=== PATIENT | female | born 1970 | race Hispanic/Latino ===

== ENCOUNTER 2018-02-07 07:08 | Day surgery (SDC) | payer BC ==
[2018-02-04 15:39] VITALS: BP 124/73
[2018-02-04 15:43] LABS: BASOPHILS % (AUTO) 0.4 % (0.0-5.0); EOSINOPHILS % (AUTO) 1.7 % (0.0-8.0); HEMATOCRIT 38.6 % (36-48); LYMPHOCYTES % (AUTO) 22.7 % (21.0-51.0); MEAN CORPUSCULAR HEMOGLOBIN 30.8 pg (27.0-33.0); MEAN CORPUSCULAR HGB CONC 33.6 g/dL (32.0-36.0); MEAN CORPUSCULAR VOLUME 91.8 fL (79-99); MONOCYTES % (AUTO) 10.5 % (3.0-13.0); NEUTROPHILS % (AUTO) 64.7 % (40.0-77.0); PLATELET COUNT (AUTO) 310 K/uL (130-400); RED BLOOD CELL COUNT(AUTO) 4.21 MIL/uL (4.00-5.50); RED CELL DISTRIBUTION WIDTH 12.8 % (11.0-15.5)
[2018-02-04 15:59] LABS: CREATININE 0.9 mg/dL (0.5-1.5); POTASSIUM 4.7 mmol/L (3.5-5.1)
[2018-02-07] VITALS (20 sets, daily range): BP systolic 125–151; BP diastolic 69–94
[~2018-02-07] VITALS: Ht 157.5 cm; Wt 65.4 kg
[~2018-02-07 07:08] MED LIST: ASPI-1197 PO; IBUP-2077 PO; SERT50TA12 PO
[2018-02-07] MEDS ORDERED: CEFAZOLIN SODIUM 1 GM VIAL ONE (08:42)
[2018-02-07] MEDS ORDERED: LACTATED RINGERS 1000ML 1,000 ML IV ONE (08:44)
[2018-02-07] MEDS: CEFAZOLIN SODIUM 1 GM VIAL IVP SCH ×2 (08:52→09:20)
[2018-02-07] MEDS ORDERED: MIDAZOLAM HCL 1 MG/ML 2ML VIAL ONE (08:55)
[2018-02-07] MEDS ORDERED: PROPOFOL 10 MG/ML 20ML VIAL IV ONE ×2 (08:55→10:31)
[2018-02-07] MEDS ORDERED: LIDOCAINE PF 2% 5ML ABBOJECT ONE (08:55)
[2018-02-07] MEDS ORDERED: ROCURONIUM 10MG/1ML SYR 10 MG/ML ML ONE (08:56)
[2018-02-07] MEDS ORDERED: FENTANYL CITRATE PF 50 MCG/1 ML 2ML VIAL ONE ×3 (08:56→10:58)
[2018-02-07] MEDS ORDERED: BUPIVACAINE/EPI/PF 0.25% 30ML VIAL IJ ONE (09:01)
[2018-02-07] MEDS ORDERED: ROPIVACAINE 0.5% 5MG/ML 30ML IJ ONE (09:12)
[2018-02-07] MEDS ORDERED: LIDOCAINE HCL-MPF 1% 2ML VIAL ONE (09:23)
[2018-02-07] MEDS ORDERED: EPHEDRINE SULFATE 50 MG/ML AMPULE ONE (10:09)
[2018-02-07] MEDS ORDERED: CEPH500B PO (11:28)
[2018-02-07] MEDS ORDERED: TYL3 PO (11:28)
[2018-02-07] MEDS ORDERED: OCTYL 2-CYANOACRYLATE 1 EACH TP ONE (11:31)
[2018-02-07] MEDS ORDERED: MEPERIDINE-PF 25 MG/ML SYG ONE ×2 (12:02→12:18)
[2018-02-07] MEDS ORDERED: KETOROLAC TROMETHAMINE 30MG/ML ONE (12:27)
[2018-02-07] MEDS ORDERED: MORPHINE SULFATE 4 MG/1ML SYG ONE (12:57)
== END 2018-02-07 15:10 | disposition home or self-care (01) ==
LOC: DAH 07:08
PROVIDERS: ATTEND Orthopaedic Surgery
DX: S83.511D Sprain of anterior cruciate ligament of right knee, subsequent encounter (principal); S83.231D Complex tear of medial meniscus, current injury, right knee, subsequent encounter; S83.281D Other tear of lateral meniscus, current injury, right knee, subsequent encounter; M94.261 Chondromalacia, right knee; I10 Essential (primary) hypertension; F17.210 Nicotine dependence, cigarettes, uncomplicated; Z79.82 Long term (current) use of aspirin; Z79.899 Other long term (current) drug therapy; Z98.51 Tubal ligation status; Z91.013 Allergy to seafood; X58.XXXD Exposure to other specified factors, subsequent encounter
CPT/HCPCS: 29881; 29888; 36415; 64447; 80048; 85025; A4218; A4649 ×5; A4930; A6223; C1713 ×2; C1762; C1776; J0690 ×2; J1885; J2001; J2175 ×2; J2250; J2270; J2704 ×2; J2795; J3010 ×3; J3490 ×2; J7030; J7120

== ENCOUNTER 2018-03-16 09:22 | Day surgery (SDC) | payer BC ==
[2018-03-15 16:23] VITALS: BP 143/78
[~2018-03-16] VITALS: Ht 157.5 cm; Wt 64.0 kg
[2018-03-16] VITALS (13 sets, daily range): BP systolic 116–150; BP diastolic 71–90
[~2018-03-16 09:22] MED LIST changes: -ASPI-1197 PO; -SERT50TA12 PO; +SULF1TAB42 PO; +TYL3 PO
[2018-03-16] MEDS ORDERED: CEFAZOLIN SODIUM 1 GM VIAL ONE (10:39)
[2018-03-16] MEDS ORDERED: LACTATED RINGERS 1000ML 1,000 ML IV ONE (10:39)
[2018-03-16] MEDS: CEFAZOLIN SODIUM 1 GM VIAL IVP ONE ×2 (11:00→12:45)
[2018-03-16] MEDS ORDERED: ONDANSETRON HCL 4 MG/2 ML VIAL ONE (11:25)
[2018-03-16] MEDS ORDERED: PROPOFOL 10 MG/ML 20ML VIAL IV ONE (11:25)
[2018-03-16] MEDS ORDERED: LIDOCAINE HCL-MPF 1% 5ML AMP IJ ONE (11:25)
[2018-03-16] MEDS ORDERED: FENTANYL CITRATE PF 50 MCG/1 ML 2ML VIAL ONE ×2 (11:26→13:48)
[2018-03-16] MEDS ORDERED: MIDAZOLAM HCL 1 MG/ML 2ML VIAL ONE (11:28)
[2018-03-16] MEDS ORDERED: MORPHINE SULFATE 4 MG/1ML SYG ONE (11:38)
[2018-03-16] MEDS ORDERED: KETAMINE 50MG/ML SYRINGE 50 MG/ML DISP.SYRIN IV ONE (11:40)
[2018-03-16] MEDS ORDERED: DEXAMETHASONE SOD PHOSPHATE 10MG/ML 1ML VIAL ONE (12:45)
[2018-03-16] MEDS ORDERED: VANCOMYCIN HCL 1 GM VIAL ONE ×3 (12:46→13:54)
[2018-03-16] MEDS ORDERED: SULF1TAB42 PO (14:32)
[2018-03-16] MEDS ORDERED: IBUP-2077 PO (14:32)
[2018-03-16] MEDS ORDERED: TYL3 PO (14:32)
[2018-03-16] MEDS ORDERED: MEPERIDINE-PF 25 MG/ML SYG ONE ×2 (14:36→14:53)
[2018-03-16] MEDS ORDERED: KETOROLAC TROMETHAMINE 30MG/ML ONE (14:45)
[2018-03-16] MEDS ORDERED: PROMETHAZINE HCL 25 MG/ML 1ML AMPULE IM ONE (14:52)
[2018-03-16 16:25] LABS: APPEARANCE BODY FLUID CLEAR (CLEAR); COLOR,BODY FLUID LT YELLOW (LT YELLOW); SPECIMENTYPE,BODY FLUID RT KNEE SYNOVIAL FLU; TOTAL VOLUME,BODY FLUID 22 mL
[2018-03-16 16:56] LABS: BODY FLUID RBC 900 /cu. mm.; BODY FLUID WBC 451 /cu. mm.
[2018-03-16 17:08] LABS: BF LYMPHOCYTE 5 %; BF MONOCYTE 5 %
== END 2018-03-16 16:35 | disposition home or self-care (01) ==
LOC: DAH 09:22
PROVIDERS: ATTEND Orthopaedic Surgery
DX: M00.861 Arthritis due to other bacteria, right knee (principal); M25.861 Other specified joint disorders, right knee; I10 Essential (primary) hypertension; F40.240 Claustrophobia; Z79.899 Other long term (current) drug therapy; Z98.890 Other specified postprocedural states; Z98.51 Tubal ligation status; K21.9 Gastro-esophageal reflux disease without esophagitis
CPT/HCPCS: 29871; 29875; 87070; 87076; 87101; 87205; 87206; 88104; 88305; 89051; A4649 ×3; A4930 ×2; A6223; J0690; J1100; J1885; J2175 ×2; J2250; J2270; J2405; J2550; J2704; J3010 ×2; J3370 ×3; J3490 ×2; J7120